=== PATIENT | male | born 1985 | race Caucasian/White ===

== ENCOUNTER 2020-09-01 11:16 | Emergency (ER) | payer SELFPAY ==
[2020-09-01 11:20] VITALS: BP 165/110; PULSE 104; RESP 20; TEMP 37.2; O2SAT 94
[2020-09-01] MEDS: SODIUM CHLORIDE 0.9% IV 1,000 ML 999 ML IV CONT (11:36)
[2020-09-01 11:48] LABS: Basophils Absolute Auto 0.1 K/mm3 (0.0-0.1); Basophils Percent Auto 1.1 % (0.2-1.2); Eosinophils Absolute Auto 0.1 K/mm3 (0-0.3); Eosinophils Percent Auto 1.3 % (0-4.4); Hematocrit 48.5 % (42.0-52.0); Hemoglobin 16.3 g/dL (14.0-18.0); Immature Granulocyte Absolute 0.04 K/mm3 (0.00-0.031); Immature Granulocyte Percent A 0.4 % (0-0.5); Lymphocytes Absolute Auto 3.19 K/mm3 (0.9-3.2); Lymphocytes Percent Auto 30.5 % (18.3-44.2); Mean Corpuscular HGB Conc 33.6 g/dl (32-36); Mean Corpuscular Hemoglobin 31.3 pg (26-34); Mean Corpuscular Volume 93.1 fl (80-100); Mean Platelet Volume 9.7 fl (7.4-10.4); Monocytes Absolute Auto 0.8 K/mm3 (0.1-0.6); Monocytes Percent Auto 7.4 % (2.6-8.5); Neutrophils Absolute Auto 6.2 K/mm3 (1.3-6.7); Neutrophils Percent Auto 59.3 % (45.5-73.1); Platelet Count Result 257 k/mm3 (150-375); Red Blood Count 5.21 M/mm3 (4.6-6.20); Red Cell Distribution Width 12.9 % (11.5-14.5); White Blood Count 10.5 K/mm3 (4.5-10.0)
--- NOTE | 2020-09-01 11:50 | ED.GENADULT ---
HPI - General Adult General Chief complaint: Unspecified Stated complaint: alcohol intoxication - wants rehab assistance Time Seen by Provider: 09/01/20 11:20 History of Present Illness HPI narrative: Patient is a 35-year-old gentleman who presents the emergency department with chief complaint of request alcohol detox. Patient states that he drinks approximately 1/5 of alcohol per day states that his last drink was approximately 1 hour ago patient reports that he wants to get clean denies suicidal or homicidal ideation Related Data Home Medications Medication Instructions Recorded Confirmed No Home Medications 09/01/20 09/01/20 Allergies Allergy/AdvReac Type Severity Reaction Status Date / Time No Known Allergies Allergy Verified 09/01/20 11:23 Review of Systems Review of Systems: Narrative: A 10 system review of systems was completed on the patient and is negative except for what is stated in the HPI. Nursing and ancillary documentation was reviewed. PMFSH Comments Patient denies past medical history Social history the patient reports to heavy alcohol abuse of approximately 1/5 of alcohol per day Exam Narrative: Exam Narrative: GENERAL: Well-appearing, well-nourished, and in no acute distress. HEAD: Normocephalic, atraumatic. EYES: PERRLA and EOMI. ENT: Nares clear, no rhinorrhea or epistaxis. Mucous membranes moist. NECK: Supple. CHEST: Clear to auscultation. No respiratory distress. HEART: Regular rate and rhythm. No murmur heard. Normal peripheral pulses. ABDOMEN: Soft, nontender, nondistended, normal active bowel sounds. EXTREMITIES: Normal range of motion. No edema. SKIN: Warm, dry, no rash. NEURO: No focal deficits. Alert and oriented x3. PSYCH: Normal mood and affect. Course Vital Signs Vital signs: Vital Signs Temperature 37.2 C 09/01/20 11:20 Pulse Rate 104 H 09/01/20 11:20 Respiratory Rate 09/01/20 11:20 Blood Pressure 165/110 H 09/01/20 11:20 Pulse Oximetry 94 09/01/20 11:20 Temperature 37.2 C 09/01/20 11:20 Pulse Rate 104 H 09/01/20 11:20 Respiratory Rate 20 09/01/20 11:20 Blood Pressure 165/110 H 09/01/20 11:20 Pulse Oximetry 94 09/01/20 11:20 Medical Decision Making Vital Signs Vital Signs: Vital Signs Temperature 37.2 C 09/01/20 11:20 Pulse Rate 104 H 09/01/20 11:20 Respiratory Rate 20 09/01/20 11:20 Blood Pressure 165/110 H 09/01/20 11:20 Pulse Oximetry 94 09/01/20 11:20 Temperature 37.2 C 09/01/20 11:20 Pulse Rate 104 H 09/01/20 11:20 Respiratory Rate 20 09/01/20 11:20 Blood Pressure 165/110 H 09/01/20 11:20 Pulse Oximetry 94 09/01/20 11:20 Lab Data Result diagrams: 09/01/20 11:39 09/01/20 11:39 Labs: Lab Results 09/01/20 09/01/20 09/01/20 Range/Units 11:39 11:39 11:39 WBC 10.5 H (4.5-10.0) K/mm3 RBC 5.21 (4.6-6.20) M/mm3 Hgb 16.3 (14.0-18.0) g/dL Hct 48.5 (42.0-52.0) % MCV 93.1 (80-100) fl MCH 31.3 (26-34) pg MCHC 33.6 (32-36) g/dl RDW 12.9 (11.5-14.5) % Plt Count 257 (150-375) k/mm3 MPV 9.7 (7.4-10.4) fl Immature Gran % (Auto) 0.4 (0-0.5) % Neut % (Auto) 59.3 (45.5-73.1) % Lymph % (Auto) 30.5 (18.3-44.2) % [place] % (Auto) 7.4 (2.6-8.5) % Eos % (Auto) 1.3 (0-4.4) % Baso % (Auto) 1.1 (0.2-1.2) % Lymph # (Auto) 3.19 (0.9-3.2) K/mm3 [place] # (Auto) 0.8 H (0.1-0.6) K/mm3 Eos # (Auto) 0.1 (0-0.3) K/mm3 Baso # (Auto) 0.1 (0.0-0.1) K/mm3 Abs Immat Gran (auto) 0.04 H (0.00-0.031) K/mm3 Absolute Neuts (auto) 6.2 (1.3-6.7) K/mm3 Absolute Nucleated RBC 0.0 (0.0-0.012) K/mm3 Nucleated RBC % 0.0 (0.0-0.2) % Sodium 146 H (137-145) mmol/L Potassium 4.2 (3.4-5.0) mmol/L Chloride 107 (98-107) mmol/L Carbon Dioxide 24 (22-30) mmol/L Anion Gap 15 (8-16) mmol/L BUN 8 L (9-20) mg/dL Creatinine 0.70 (0.7-1.3) mg/dL Estim
[2020-09-01 11:58] LABS: Alanine Aminotransferase 86 U/L (4-50); Albumin Level 4.6 g/dL (3.5-5.1); Alkaline Phosphatase 64 U/L (38-126); Anion Gap 15 mmol/L (8-16); Aspartate Amino Transferase 133 U/L (17-59); Bilirubin,Total 0.5 mg/dL (0.2-1.3); Blood Urea Nitrogen 8 mg/dL (9-20); Calcium 8.7 mg/dL (8.4-10.2); Carbon Dioxide 24 mmol/L (22-30); Chloride 107 mmol/L (98-107); Estimated CRCL calculation 141 ml/min; Estimated Glomerular Filt Rate > 60; Glucose 98 mg/dL (75-110); Potassium 4.2 mmol/L (3.4-5.0); Sodium 146 mmol/L (137-145)
[2020-09-01 12:19] LABS: Ethanol 431 mg/dL (<10)
== END 2020-09-01 13:46 | disposition home or self-care (01) ==
PROVIDERS: Emergency Provider Emergency Medicine
DX: F10.10 Alcohol abuse, uncomplicated (principal); Y90.8 Blood alcohol level of 240 mg/100 ml or more
CPT/HCPCS: 36415; 80053; 80307; 85025; 96360; 96361; 99283; J7030

== ENCOUNTER 2022-08-19 19:43 | Emergency (ER) | payer SELFPAY ==
--- NOTE | ~2022-08-19 | XR_ITS ---
EXAMINATION: XR chest 2V DATE: 08/19/2022 20:47 INDICATION: Rib fracture TECHNIQUE: PA and lateral views of the chest are obtained. COMPARISON: 10/29/2014 FINDINGS: The lungs are free of acute opacities. No pleural effusion or pneumothorax. The cardiomedia stinal silhouette is normal. There is mild thoracic spondylosis. Acute fractures of the left fourth a nd fifth ribs are again noted. IMPRESSION: 1. No acute cardiopulmonary abnormality. 2. Acute fractures of the left fourth and fifth ribs. Reviewed, dictated and finalized at location F. ER ASSEMBLER
--- NOTE | ~2022-08-19 | XR_ITS ---
EXAMINATION: XR ribs LT 2V INDICATION: Left rib pain TECHNIQUE: 3 views of the left ribs were obtained. COMPARISON: 10/29/2014 FINDINGS: There are acute, traumatic, closed fractures of the anterolateral aspects of the left fourt h and fifth ribs. The visualized lungs are clear. No pleural effusion or pneumothorax. The cardiomedi astinal silhouette is normal. IMPRESSION: 1. Acute fractures at the anterolateral aspects of the left fourth and fifth ribs. Reviewed, dictated and finalized at location F. ADING MACHINE FEEDER AUTOMATIC IMPRESSION: 1. Acute fractures at the anterolateral aspects of the left fourth and fifth ri bs.
--- NOTE | ~2022-08-19 | CT_ITS ---
EXAMINATION: CT brain wo con INDICATION: Head injury COMPARISON: None TECHNIQUE: Standard unenhanced head CT. The dose-length product (DLP) was 605.33 mGy-cm. The mA was a djusted according to patient size. Iterative reconstruction technique was employed. FINDINGS: There is no intracranial hemorrhage, acute infarction, or abnormal mass lesion. The ventric les are normal. There is no abnormal mass effect or midline shift. The diaz-white matter differentiat ion is normal. The basal cisterns are patent. The orbits are normal. The paranasal sinuses, mastoids and calvarium are normal. IMPRESSION: 1. No acute intracranial abnormality. Reviewed, dictated and finalized at location F. HER MERCHANT MILL
[2022-08-19 19:47] VITALS: BP 185/92; PULSE 104; RESP 16; TEMP 36.9; O2SAT 97
--- NOTE | 2022-08-19 20:54 | ED.GENADULT ---
HPI - General Adult General Chief complaint: Unspecified Stated complaint: Pain to left rib Time Seen by Provider: 08/19/22 20:34 Source: patient Mode of arrival: ambulatory Limitations: no limitations History of Present Illness HPI narrative: This is a 37 year old male that presents to the ER after a fall 5 days ago with left rib injury. Reports he had been drinking and tripped and fell forward onto a wood threshold. He is unsure if he hit his head. He did not lose consciousness. Reports left rib pain since the fall which prompted him to be seen. Denies other focal injuries, vision changes, vomiting, numbness or weakness. Related Data Home Medications Medication Instructions Recorded Confirmed No Home Medications 09/01/20 09/01/20 Allergies Allergy/AdvReac Type Severity Reaction Status Date / Time No Known Allergies Allergy Verified 09/01/20 11:23 Review of Systems Review of Systems: CONSTITUTIONAL: Denies fever EYES: Denies visual changes CARDIOVASCULAR: Reports rib/chest pain RESPIRATORY: Denies dyspnea. GASTROINTESTINAL: Denies vomiting MUSCULOSKELETAL: Denies back pain, joint pain, or myalgia. NEUROLOGIC: Denies numbness, or weakness. All systems reviewed & are unremarkable except as noted in HPI and below PMFSH Past Medical History Medical History (Updated 08/19/22 @ 21:37 by Loren Corcoran PA-C) History of alcohol abuse Social History Social History (Updated 08/19/22 @ 20:59 by Loren Corcoran PA-C) Smoking status: Current every day smoker Alcohol intake: current Substance use: current Substance use type: marijuana Exam Narrative: GENERAL: Well-appearing, well-nourished, and in no acute distress. HEAD: Normocephalic, atraumatic. EYES: PERRLA and EOMI. ENT: Nares clear, no rhinorrhea or epistaxis. Mucous membranes moist. Oropharynx without tonsillar hypertrophy exudate or other lesions. Bilateral TMs pearly diaz non-bulging NECK: Supple. No adenopathy or masses. No midline cervical spine tenderness CHEST: Clear to auscultation. No respiratory distress. No wheezes rales or rhonchi HEART: Regular rate and rhythm. No murmur heard. Normal peripheral pulses. BACK: No midline spinal tenderness EXTREMITIES: Normal range of motion. No edema or obvious deformity. Strength equal in bilateral upper and lower extremities (5/5) SKIN: Warm, dry, no rash. NEURO: No focal deficits. Alert and oriented x3. CN II-XII grossly intact. Normal gait PSYCH: Normal mood and affect Course Course Emergency Course: Patient updated on workup and agrees with plan of care. Resting comfortably Vital Signs Vital signs: Vital Signs Temperature 98.4 F 08/19/22 19:47 Pulse Rate 104 H 08/19/22 19:47 Respiratory Rate 16 08/19/22 19:47 Blood Pressure 185/92 H 08/19/22 19:47 Pulse Oximetry 97 08/19/22 19:47 Oxygen Delivery Room Air 08/19/22 19:47 Temperature 98.4 F 08/19/22 19:47 Pulse Rate 90 08/19/22 21:25 Respiratory Rate 16 08/19/22 19:47 Blood Pressure 145/98 H 08/19/22 21:25 Pulse Oximetry 98 08/19/22 21:25 Oxygen Delivery Room Air 08/19/22 19:47 Medical Decision Making MDM Narrative Medical decision making narrative: Patient presents to the emergency department after a ground-level fall 5 days ago with left-sided rib pain. Hypertensive and mildly tachycardic upon arrival, this down trended without intervention. Rib/chest films show fractures of the left fourth and fifth ribs. No acute cardiopulmonary abnormality. CT scan of the brain was also obtained as patient was unsure if he hit his head and he had been drinking at the time. He is neurologically intact today. CT scan of his brain is without acute findings. He had no midline spinal tenderness or other focal areas of pain. His oxygen saturation is normal on room air. Patient does have history of alcohol abuse. He did not voice any intent on getting sober. He was given resources. Spoke with patient abo
[2022-08-19 21:25] VITALS: BP 145/98; PULSE 90; O2SAT 98
[2022-08-19] MEDS: LIDOCAINE 5% PATCH 1 PATCH TRANSDERM (21:34)
== END 2022-08-19 21:45 | disposition home or self-care (01) ==
PROVIDERS: Emergency Provider Physician Assistant
DX: S22.42XA Multiple fractures of ribs, left side, initial encounter for closed fracture (principal); F17.200 Nicotine dependence, unspecified, uncomplicated; W01.0XXA Fall on same level from slipping, tripping and stumbling without subsequent striking against object, initial encounter
CPT/HCPCS: 70450; 71046; 71100; 99284; A9270

== ENCOUNTER 2023-02-12 14:02 | Emergency (ER) | payer SELFPAY ==
[2023-02-12 14:06] VITALS: BP 156/104; PULSE 89; RESP 16; TEMP 36.8; O2SAT 97
[2023-02-12] MEDS: HYDROcodone/acetaminophen (*CRX) 5-325 MG TABLET 1 TAB PO (14:48)
--- NOTE | 2023-02-12 15:28 | ED.GENADULT ---
HPI - General Adult General Chief complaint: Burn/Smoke Inhalation Stated complaint: burn to left hand Time Seen by Provider: 02/12/23 14:07 History of Present Illness HPI narrative: 37-year-old male present to the emergency department for evaluation of a burn to his left hand. Patient states he was making refried beans and spilled them on his left hand burning the dorsal surface of his left hand. Nieves are not circumferential of the fingers palm or thumb. Patient states that his tetanus is up-to-date. Related Data Allergies Allergy/AdvReac Type Severity Reaction Status Date / Time No Known Allergies Allergy Verified 02/12/23 14:03 Review of Systems Review of Systems: All systems reviewed & are unremarkable except as noted in HPI and below PMFSH Past Medical History Medical History (Updated 02/12/23 @ 15:08 by Josr Ellis MD) History of alcohol abuse Social History Social History (Updated 08/19/22 @ 20:59 by Loren Corcoran PA-C) Smoking status: Current every day smoker Alcohol intake: current Substance use: current Substance use type: marijuana Exam Narrative: APPEARANCE: Well appearing, no pain, no distress, well-nourished. HEAD: normocephalic, atraumatic. EYES: PERRLA/EOMI, conjunctivae clear. NOSE: Normal no drainage NECK: Supple. No adenopathy, no masses. RESPIRATORY: Airway patent, respirations nonlabored. Clear to auscultation bilaterally, no rales, rhonchi, wheezing. CARDIOVASCULAR: Regular rate and rhythm without murmurs rubs or gallops. ABDOMINAL: Soft, nontender, nondistended, normal bowel sounds MUSCULOSKELETAL: Moves all extremities. Strength/ROM intact, No edema, No calf tenderness. NEURO: Alert. Cranial nerves II through XII intact. Good gait. Good coordination SKIN: First and second-degree nieves to the posterior aspects of the left hand. Nieves are not circumferential of the fingers and or thumb. Patient does have sensation intact under the blisters Course Course Emergency Course: Antibiotic ointment and nonadhesive dressing was applied to the nieves. Patient's tetanus is up-to-date. Patient was provided follow-up with [facility]. Patient was updated on the importance of having the follow-up with the burn center. Vital Signs Vital signs: Vital Signs Temperature 98.3 F 02/12/23 14:06 Pulse Rate 89 02/12/23 14:06 Respiratory Rate 16 02/12/23 14:06 Blood Pressure 156/104 H 02/12/23 14:06 Pulse Oximetry 97 02/12/23 14:06 Temperature 98.3 F 02/12/23 14:06 Pulse Rate 89 02/12/23 14:06 Respiratory Rate 16 02/12/23 14:06 Blood Pressure 156/104 H 02/12/23 14:06 Pulse Oximetry 97 02/12/23 14:06 Medical Decision Making Vital Signs Vital Signs: Vital Signs Temperature 98.3 F 02/12/23 14:06 Pulse Rate 89 02/12/23 14:06 Respiratory Rate 16 02/12/23 14:06 Blood Pressure 156/104 H 02/12/23 14:06 Pulse Oximetry 97 02/12/23 14:06 Temperature 98.3 F 02/12/23 14:06 Pulse Rate 89 02/12/23 14:06 Respiratory Rate 16 02/12/23 14:06 Blood Pressure 156/104 H 02/12/23 14:06 Pulse Oximetry 97 02/12/23 14:06 Discharge Plan Discharge Clinical Impression: Burn of hand Patient Disposition: Home, Self-Care Condition: Stable Instructions: Antibiotic Form, Second-Degree Burn (ED) Additional Instructions: Wound care as directed, call to have follow-up with the [facility] [address] [place] [address] Main Entrance: Main entrance off [facility]. Hours: Open 24 Hours Ibuprofen for pain control. [place] as needed for additional pain control. Prescriptions: New hydrocodone-acetaminophen 5-325 mg tablet 1 tablet PO Q12H PRN (Reason: pain) Qty: 10 0RF Follow-up/Referrals: PHYSICIAN,SENIOR GAME ADVISOR [Primary Care Provider] -
== END 2023-02-12 15:59 | disposition home or self-care (01) ==
PROVIDERS: Emergency Provider Emergency Medicine
DX: T23.262A Burn of second degree of back of left hand, initial encounter (principal); T31.0 Burns involving less than 10% of body surface; F17.200 Nicotine dependence, unspecified, uncomplicated; X10.1XXA Contact with hot food, initial encounter; Y93.G3 Activity, cooking and baking
CPT/HCPCS: 99283; A9270

== ENCOUNTER 2023-09-22 22:29 | Emergency (ER) | payer OTHER, SELFPAY ==
--- NOTE | ~2023-09-22 | CT_ITS ---
EXAMINATION: CT brain wo con DATE: 09/23/2023 01:02 INDICATION: Fall. Head injury. TECHNIQUE: Computed tomography (CT) of the head was performed without intravenous contrast. The mA wa s adjusted according to patient size. Iterative reconstruction technique was employed. The dose-lengt h product was 842.00 mGy-cm. COMPARISON: Head CT 08/19/2022 FINDINGS: There is no intracranial hemorrhage, acute infarction, or abnormal intracranial mass lesion . The ventricles are normal in size. There is mild mucosal thickening in the paranasal sinuses. The o rbits are normal. There is a left periorbital hematoma. The mastoid air cells are normal. IMPRESSION: 1. Normal brain. Reviewed, dictated and finalized at location A. ING TOOL TECHNICIAN OIL WELL IMPRESSION: 1. Normal brain.
--- NOTE | ~2023-09-22 | XR_ITS ---
EXAMINATION: [id number]_[id number] DATE: 09/23/2023 01:06 INDICATION: Right knee pain. Fall. TECHNIQUE: 2 views of right knee were obtained. COMPARISON: None. FINDINGS: Bone alignment is normal. No fracture. Joint spaces are normal. No knee joint effusion. IMPRESSION: 1. No fracture. Reviewed, dictated and finalized at location A. IMPRESSION: 1. No fracture.
--- NOTE | ~2023-09-22 | CT_ITS ---
EXAMINATION: CT cervical spine wo con DATE: 09/23/2023 01:01 INDICATION: Head injury. TECHNIQUE: Computed tomography (CT) of the cervical spine was performed without intravenous contrast. Automated exposure control and iterative reconstruction technique were employed. The dose-length pro duct was 457.00 mGy-cm. COMPARISON: CT cervical spine 10/29/2014 FINDINGS: There is 6 degrees dextrocurvature of cervical spine. There is kyphosis of cervical spine. Vertebral body heights are normal. There is mildly decreased disc height at C3-C4 and C4-C5. The foll owing disc levels are specifically discussed: C2-C3: There is mild lateral uncovertebral joint osteoarthritis. There is mild right and moderate lef t facet joint osteoarthritis. There is no neural foraminal stenosis. There is no central canal stenos is. C3-C4: There is mild right and moderate left uncovertebral joint osteoarthritis. There is mild latera l facet joint osteoarthritis. There is mild bilateral neural foraminal stenosis. There is mild centra l canal stenosis. C4-C5: There is mild bilateral uncovertebral joint osteoarthritis. There is no facet joint osteoarthr itis. There is mild left neural foraminal stenosis. There is no central canal stenosis. C5-C6: There is mild left uncovertebral joint osteoarthritis. There is mild bilateral facet joint ost eoarthritis. There is mild bilateral neural foraminal stenosis. There is mild central canal stenosis. C6-C7: There is no uncovertebral joint osteoarthritis. There is no facet joint osteoarthritis. There is no neural foraminal stenosis. There is no central canal stenosis. C7-T1: There is no uncovertebral joint osteoarthritis. There is mild bilateral facet joint osteoarthr itis. There is no neural foraminal stenosis. There is no central canal stenosis. IMPRESSION: 1. No fracture. 2. Mild cervical spondylosis. Reviewed, dictated and finalized at location A. TING ENGINEERING TECHNICIAN
--- NOTE | ~2023-09-22 | CT_ITS ---
EXAMINATION: CT facial bones w con DATE: 09/23/2023 01:02 INDICATION: Left periorbital swelling. Fall. TECHNIQUE: Computed tomography (CT) of the facial bones and maxillofacial region was performed with 7 5 mL Omnipaque 350 intravenous contrast. Automated exposure control and iterative reconstruction tech Dunwell[employer] were employed. The dose-length product was 547.00 mGy-cm. COMPARISON: None. FINDINGS: There is left periorbital soft tissue swelling. The orbits are normal. There is mild mucosa l thickening in the paranasal sinuses. There are carious lesions of many of the teeth. There is right kramer deviation of the nasal septum. No fracture. IMPRESSION: 1. No fracture. 2. Dental disease. Reviewed, dictated and finalized at location A. CHASER
[2023-09-22 22:36] VITALS: BP 147/95; PULSE 112; RESP 18; TEMP 36.9; O2SAT 95
[2023-09-22 23:11] VITALS: BP 130/84; PULSE 109; RESP 21; O2SAT 91
--- NOTE | 2023-09-22 23:54 | ED.GENADULT ---
[facility] - General Adult General Chief complaint: Fall Stated complaint: tripped and fell into a wood floor Time Seen by Provider: 09/22/23 23:25 Source: patient Mode of arrival: ambulatory Limitations: no limitations History of Present Illness HPI narrative: This is a 38-year-old male with PMH of alcoholism who presents to the ED for chief complaint of fall that occurred just prior to arrival. Patient reports that he tripped and stumbled on a piece of furniture on the floor. He reports that he this caused him to fall down to his knees and he had his head on the floor. Reports swelling to the left eye which is where most of his pain is. Also reports abrasions to the knees. Reports right knee pain. Endorses ETOH use. Reports that he drank a pint of vodka tonight. He has been trying to cut back. reports that since being in the ER and not having alcohol he has felt a little nauseous. Unsure of LOC. denies numbness, weakness, vertigo, chest pain, shortness breath, abdominal pain. Related Data Home Medications Medication Instructions Recorded Confirmed No Home Medications 09/22/23 Allergies Allergy/AdvReac Type Severity Reaction Status Date / Time No Known Allergies Allergy Verified 09/22/23 23:15 Review of Systems Review of Systems: All systems as dictated in [facility] Past Medical History Medical History (Updated 09/23/23 @ 01:27 by Cory Vazquez PA-C) History of alcohol abuse Social History Social History (Updated 08/19/22 @ 20:59 by Loren Corcoran PA-C) Smoking status: Current every day smoker Alcohol intake: current Substance use: current Substance use type: marijuana Exam Narrative: GENERAL: Well-appearing, well-nourished, and in no acute distress. HEAD: Normocephalic, atraumatic. EYES: PERRLA and EOMI. Left periorbital bruising and swelling present. Able to open and close both eyes fully. ENT: Nares clear, no rhinorrhea or epistaxis. Mucous membranes moist. Oropharynx without tonsillar hypertrophy exudate or other lesions. NECK: Supple. No adenopathy or masses. CHEST: No respiratory distress. Clear to auscultation. No wheezes rales or rhonchi HEART: Regular rate and rhythm. No murmur heard. Normal peripheral pulses. ABDOMEN: Soft, nontender, nondistended, normal active bowel sounds. MSK: Normal range of motion. No edema. SKIN: Warm, dry, no rash. NEURO: Alert and oriented x3. No focal deficits. PSYCH: Normal mood and affect. Course Vital Signs Vital signs: Vital Signs Temperature 98.4 F 09/22/23 22:36 Pulse Rate 112 H 09/22/23 22:36 Respiratory Rate 18 09/22/23 22:36 Blood Pressure 147/95 H 09/22/23 22:36 Pulse Oximetry 95 09/22/23 22:36 Temperature 98.4 F 09/22/23 22:36 Pulse Rate 86 09/23/23 02:31 Respiratory Rate 15 09/23/23 02:31 Blood Pressure 120/96 H 09/23/23 02:31 Pulse Oximetry 97 09/23/23 02:31 Medical Decision Making MDM Narrative Medical decision making narrative: This is a 38-year-old male with alcoholism who presents to the ED for chief complaint of a fall. He stumbled on a piece of furniture on the ground tonight. Vitals are normal. Exam shows left periorbital hematoma. No mild abrasion to the right knee. No neuro deficits. No overt alcoholic intoxication on exam. He is pleasant and conversational. The lab work shows no leukocytosis, CBC is remarkable for a decreased platelet count of 134. PT INR intact. CMP shows evidence of alcoholic liver with elevated AST, 2:1 ratio ALT. No evidence of liver failure Or acute hepatitis. Right knee x-ray does not show any overt fracture.. CT head, facial bones, C-spine are all negative for any acute findings. Patient was given some thiamine IV before discharge. He has a friend who will pick him up. Lengthy discussion regarding alcohol use in cutting back. Pt will be discharged in stable condition. Return precautions given and supportive measures discussed. Pt i
[2023-09-23] MEDS: ONDANSETRON INJ 4 MG/2 ML VIAL IV PUSH (00:18)
[2023-09-23 00:24] LABS: Basophils Absolute Auto 0.1 K/mm3 (0.0-0.1); Basophils Percent Auto 1.4 % (0.2-1.2); Eosinophils Absolute Auto 0.1 K/mm3 (0-0.3); Eosinophils Percent Auto 0.7 % (0-4.4); Hematocrit 45.6 % (42.0-52.0); Hemoglobin 15.2 g/dL (14.0-18.0); Immature Granulocyte Absolute 0.04 K/mm3 (0.00-0.031); Immature Granulocyte Percent A 0.5 % (0-0.5); Lymphocytes Absolute Auto 4.05 K/mm3 (0.9-3.2); Lymphocytes Percent Auto 50.1 % (18.3-44.2); Mean Corpuscular HGB Conc 33.3 g/dl (32-36); Mean Corpuscular Hemoglobin 31.9 pg (26-34); Mean Corpuscular Volume 95.6 fl (80-100); Mean Platelet Volume 10.8 fl (7.4-10.4); Neutrophils Absolute Auto 2.9 K/mm3 (1.3-6.7); Neutrophils Percent Auto 35.3 % (45.5-73.1); Platelet Count Result 134 k/mm3 (150-375); Red Blood Count 4.77 M/mm3 (4.6-6.20); Red Cell Distribution Width 12.9 % (11.5-14.5); White Blood Count 8.1 K/mm3 (4.5-10.0)
[2023-09-23 00:33] LABS: Alanine Aminotransferase 164 U/L (6-50); Albumin Level 3.8 g/dL (3.5-5.1); Alkaline Phosphatase 112 U/L (38-126); Anion Gap 10 mmol/L (8-16); Aspartate Amino Transferase 348 U/L (17-59); Bilirubin,Total 0.8 mg/dL (0.2-1.3); Blood Urea Nitrogen 7 mg/dL (9-20); Calcium 9.2 mg/dL (8.4-10.2); Carbon Dioxide 29 mmol/L (22-30); Chloride 105 mmol/L (98-107); Estimated CRCL calculation 185 ml/min; Estimated Glomerular Filt Rate > 60; Glucose 106 mg/dL (65-110); Potassium 3.5 mmol/L (3.4-5.0); Sodium 144 mmol/L (137-145)
[2023-09-23 00:35] LABS: INR 0.9; Prothrombin Time 12.7 Seconds (11.1-14.7)
[2023-09-23 01:13] VITALS: BP 121/77; PULSE 85; RESP 22; O2SAT 94
[2023-09-23 01:30] VITALS: BP 135/83; PULSE 94; RESP 19; O2SAT 91
[2023-09-23] MEDS: THIAMINE 500 MG/NS 100 ML 500 MG/100 ML BAG 200 MG IVPB (01:52)
[2023-09-23 02:01] VITALS: BP 122/79; PULSE 89; RESP 15; O2SAT 92
[2023-09-23 02:15] VITALS: BP 122/79; PULSE 79; RESP 14; O2SAT 96
[2023-09-23 02:31] VITALS: BP 120/96; PULSE 86; RESP 15; O2SAT 97
== END 2023-09-23 02:53 | disposition home or self-care (01) ==
PROVIDERS: Emergency Provider Physician Assistant
DX: S00.12XA Contusion of left eyelid and periocular area, initial encounter (principal); S80.212A Abrasion, left knee, initial encounter; S80.211A Abrasion, right knee, initial encounter; F17.200 Nicotine dependence, unspecified, uncomplicated; F10.20 Alcohol dependence, uncomplicated; Y90.9 Presence of alcohol in blood, level not specified; K02.9 Dental caries, unspecified; M47.812 Spondylosis without myelopathy or radiculopathy, cervical region; W18.09XA Striking against other object with subsequent fall, initial encounter
CPT/HCPCS: 36415; 70450; 70487; 72125; 73560; 80053; 85025; 85610; 96365; 96375; 99284; J2405; J3411; Q9967